=== PATIENT | female | born 1995 | race African-American/Black ===

== ENCOUNTER 2019-06-22 23:21 | Emergency (ER) | payer MEDICAID ==
[~2019-06-22] VITALS: Ht 152.4 cm; Wt 43.0 kg
[2019-06-23] MEDS ORDERED: IBUPROFEN 600MG TABLET PO ONE
[2019-06-23] MEDS ORDERED: BACITRACIN ZINC OINT UDPKT TOP ONE
[2019-06-23] MEDS ORDERED: LIDOCAINE HCL/PF 1% 10 MG/ML 5ML VIAL IJ ONE
[2019-06-23 01:36] VITALS: BP 110/68
== END 2019-06-23 01:37 | disposition home or self-care (01) ==
LOC: ER 23:21
DX: S61.011A Laceration without foreign body of right thumb without damage to nail, initial encounter (principal); W22.8XXA Striking against or struck by other objects, initial encounter; Y93.89 Activity, other specified; Y92.89 Other specified places as the place of occurrence of the external cause; Y99.8 Other external cause status
CPT/HCPCS: 12031; 73130; 99283; J3490

== ENCOUNTER 2019-06-24 22:29 | Emergency (ER) | payer MEDICAID ==
[~2019-06-24] VITALS: Ht 162.6 cm; Wt 57.0 kg
[2019-06-24 23:16] VITALS: BP 111/71
== END 2019-06-24 23:16 | disposition home or self-care (01) ==
LOC: ER 22:29
DX: S61.011D Laceration without foreign body of right thumb without damage to nail, subsequent encounter (principal); X58.XXXD Exposure to other specified factors, subsequent encounter
CPT/HCPCS: 99281

== ENCOUNTER 2019-06-29 13:15 | Emergency (ER) | payer MEDICAID ==
[~2019-06-29] VITALS: Ht 162.6 cm; Wt 45.0 kg
[2019-06-29 13:36] VITALS: BP 96/60
== END 2019-06-29 14:48 | disposition home or self-care (01) ==
LOC: ER 13:15
DX: S61.011D Laceration without foreign body of right thumb without damage to nail, subsequent encounter (principal); X58.XXXD Exposure to other specified factors, subsequent encounter
CPT/HCPCS: 99282

== ENCOUNTER 2019-07-02 19:27 | Emergency (ER) | payer MEDICAID ==
[~2019-07-02] VITALS: Ht 162.6 cm; Wt 48.1 kg
[2019-07-02 20:08] VITALS: BP 107/83
== END 2019-07-02 20:49 | disposition home or self-care (01) ==
LOC: ER 19:27
DX: Z48.02 Encounter for removal of sutures (principal)
CPT/HCPCS: 99281